=== PATIENT | male | born 1970 | race Caucasian/White ===

== ENCOUNTER 2020-10-23 10:04 | Day surgery (SDC) | payer BC ==
[2020-10-18 10:26] LABS: BASOPHILS % (AUTO) 0.6 % (0-1); EOSINOPHILS # (AUTO) 0.1 X10'3 (0-0.9); EOSINOPHILS % (AUTO) 2.4 % (0-6); LYMPHOCYTES # (AUTO) 1.5 X10'3 (1.1-4.8); LYMPHOCYTES % (AUTO) 45.4 % (21-51); MEAN CORPUSCULAR HGB CONC 33.5 g/dL (33.0-36.5); MEAN CORPUSCULAR VOLUME 89.8 FL (78-98); MEAN PLATELET VOLUME 7.4 FL (7.4-10.4); MONOCYTES # (AUTO) 0.3 X10'3 (0-0.9); MONOCYTES % (AUTO) 8.7 % (2-12); NEUTROPHILS # (AUTO) 1.5 X10'3 (1.8-7.7); NEUTROPHILS % (AUTO) 42.9 % (42-75); PRE OP HEMATOCRIT 40.2 % (42.0-52.0); PRE OP HEMOGLOBIN 13.5 g/dL (14.0-17.9); PRE OP PLATELET COUNT 212 X10'3 (140-440); RED BLOOD COUNT 4.48 X10'6 (4.70-6.10); RED CELL DISTRIBUTION WIDTH 14.1 % (11.5-14.5)
[2020-10-18 10:52] LABS: ALBUMIN 3.8 G/DL (3.4-5.0); ALKALINE PHOSPHATASE 103 IU/L (46-116); BLOOD UREA NITROGEN 21 MG/DL (7-18); BUN/CREATININE RATIO 26.9 (5.4-32.0); CALCIUM 8.7 MG/DL (8.5-10.1); CHLORIDE 105 MMOL/L (99-107); CREATININE 0.78 MG/DL (0.60-1.10); PRE OP ALT 25 U/L (30-65); PRE OP ANION GAP 7 (8-16); PRE OP AST 22 U/L (10-37); PRE OP BILIRUB, TOTAL 1.4 MG/DL (0.0-1.0); PRE OP GLUCOSE 100 MG/DL (70-104); PRE OP POTASSIUM 3.7 MMOL/L (3.4-5.1); PRE OP SODIUM 143 MMOL/L (135-145); TOTAL CARBON DIOXIDE 30.8 MMOL/L (24-32); TOTAL PROTEIN 7.8 G/DL (6.4-8.2); eGFR > 90 ML/MIN
[~2020-10-23] VITALS: Ht 182.9 cm; Wt 75.4 kg
[2020-10-23] VITALS (12 sets, daily range): BP systolic 89–145; BP diastolic 54–82
[~2020-10-23 10:04] MED LIST: ASPI-1264 PO; BUPIVAcaine/PF 2.5 mg/ml (0.25%) 30ml vial ONE; FLEC100T2 PO; LIDOcaine 1% 30ml preserv. free vial ONE; VILA10TA PO; ceFAZolin 2gm in dextrose, iso 50 ML IV ONE; famotidine 20mg tablet PO ONE; ringers solution, lacted 1,000 ML IV SCH
[2020-10-23] MEDS ORDERED: meperidine/PF 25mg/ml syringe IV PRN ×2 (10:05)
[2020-10-23] MEDS ORDERED: ringers solution, lacted 1,000 ML IV SCH (10:05)
[2020-10-23] MEDS ORDERED: morphine 2 MG/ML inj. syringe IV PRN (10:05)
[2020-10-23] MEDS ORDERED: proCHLORperazine 10 MG/2 ml inj IV PRN (10:05)
[2020-10-23] MEDS ORDERED: ondansetron/PF 4mg/2ml inj IV PRN (10:05)
[2020-10-23] MEDS ORDERED: morphine 4 MG/ML inj SYRINge IV PRN (10:05)
[2020-10-23] MEDS ORDERED: acetaminophen 1,000mg/100ml IV 100 ML IV ONE (11:35)
[2020-10-23] MEDS ORDERED: fentaNYL/PF 50MCG/1 ML 2ML syringe ONE (12:23)
[2020-10-23] MEDS ORDERED: LIDOcaine 2% (20mg/ml) 5ml vial ONE (12:23)
[2020-10-23] MEDS ORDERED: midazolam 2 mg/2 ml injection ONE (12:23)
[2020-10-23] MEDS ORDERED: rocuronium 10mg/ml inj IV ONE (12:23)
[2020-10-23] MEDS ORDERED: propofol inj 20 ML IV ONE (12:23)
[2020-10-23] MEDS ORDERED: sevoflurane 250ml liquid IH ONE (12:48)
[2020-10-23] MEDS ORDERED: neostigmine methylsulfate 1 MG/ML 10ml vial ONE (12:48)
[2020-10-23] MEDS ORDERED: ondansetron/PF 4mg/2ml inj ONE (12:48)
[2020-10-23] MEDS ORDERED: dexamethasone sod phosphate 4mg/ml inj. ONE (13:05)
[2020-10-23] MEDS ORDERED: glycopyrrolate 0.2mg/ml inj ONE (13:55)
--- NOTE | 2020-10-23 14:05 | NUR ---
Received from OR via , accompanied by Anesthesiologist DR LOZANO and report given by Anesthesiolgist. AWAKENS TO VOICE. VITALS STABLE. DRESSINGS DI. DAVE PAIN. ABD SOFT.
[2020-10-23] MEDS ORDERED: HYDROcodone/acetaminophen 10/325mg tab PO PRN (14:15)
[2020-10-23] MEDS ORDERED: HYDROcodone/acetaminophen 5mg/325mg tablet PO PRN (14:15)
[2020-10-23] MEDS: meperidine/PF 25mg/ml syringe IV PRN ×2 (14:35→15:22)
--- NOTE | 2020-10-23 16:05 | NUR ---
AWAKE AND ORIENTED. VITALS STABLE. DRESSINGS DI. STATES PAIN AT A TOLERABLE LEVEL. HOME WITH HIS SPOUSE AT THIS TIME.
== END 2020-10-23 16:05 | disposition home or self-care (01) ==
LOC: PAS 10:04
PROVIDERS: ATTEND Surgery
DX: K40.90 Unilateral inguinal hernia, without obstruction or gangrene, not specified as recurrent (principal); Z20.822 Contact with and (suspected) exposure to COVID-19; F32.9 Major depressive disorder, single episode, unspecified; I48.91 Unspecified atrial fibrillation; Z79.899 Other long term (current) drug therapy; Z98.890 Other specified postprocedural states; Z79.82 Long term (current) use of aspirin; Z82.61 Family history of arthritis; Z83.3 Family history of diabetes mellitus; Z82.49 Family history of ischemic heart disease and other diseases of the circulatory system
CPT/HCPCS: 36415; 49650; 80053; 82948; 85025; 87635; 93005; C1781; J0131; J1100; J2001; J2175; J2250; J2405; J2704; J2710; J3010; J3490; S2900; A4215; A4618; J7120